=== PATIENT | male | born 1955 | race Hispanic/Latino ===

== ENCOUNTER 2017-11-13 10:51 | Day surgery (SDC) | payer MEDICAID ==
[2017-11-12 14:10] VITALS: BMI 26.2
[2017-11-13 11:32] LABS: BASO # 0.01 K/mm3 (0.0-2.0); BASO % 0.1 % (0.0-3.0); EOS # 0.1 (0.0-0.7); EOS % 1.2 % (1.5-5.0); GRAN # 5.93 (1.4-6.5); GRAN % 85.6 % (50.0-68.0); HEMOGLOBIN 9.2 g/dL (14.0-18.0); LYMPH # 0.5 (1.2-3.4); LYMPH % 7.6 % (22.0-35.0); MEAN CELL VOLUME 79.4 fl (80.0-105.0); MEAN CORPUSCULAR HEMOGLOBIN 24.3 pg (25.0-35.0); MEAN CORPUSCULAR HGB CONC 30.6 g/dl (31.0-37.0); MEAN PLATELET VOLUME 9.3 fl (7.0-11.0); MONO # 0.4 (0.1-0.6); MONO % 5.5 % (1.0-6.0); RBC 3.79 10^6/uL (3.5-6.1); RED CELL DISTRIBUTION WIDTH 15.2 % (11.5-14.5); WHITE BLOOD COUNT 6.9 10^3/ul (4.5-11.0)
[2017-11-13 11:35] VITALS: O2SAT 96
[2017-11-13 11:38] LABS: CALCIUM 10.3 mg/dL (8.4-10.5)
[2017-11-13 11:54] LABS: INR 1.15 (0.93-1.08); PARTIAL THROMBOPLASTIN TIME 61.3 Seconds (25.1-36.5); PROTHROMBIN TIME 13.3 SECONDS (9.4-12.5)
[2017-11-13] MEDS ORDERED: Lidocaine 2% Inj (20ml) ONE (13:26)
[2017-11-13] MEDS ORDERED: Midazolam 2 MG/2 ML VIAL ONE ×2 (14:12→14:25)
[2017-11-13] MEDS ORDERED: Oxycodone/Acetaminophen 5/325 mg Tab PO PRN (14:58)
[2017-11-13] MEDS ORDERED: Sodium Chloride 0.45% 1,000 ML IV SCH (15:00)
[2017-11-13 15:59] VITALS: BP 140/88; PULSE 60; RESP 16; TEMP 98
[2017-11-13] MEDS ORDERED: Oxycodone/Acetaminophen 5/325 mg Tab ONE (16:10)
--- NOTE | 2017-11-13 19:35 | VASCULAR ---
PROCEDURE: Ultrasound and fluoroscopic right subclavian venous access port CLINICAL HISTORY: Metastatic bladder carcinoma.Venous port for chemotherapy. PHYSICIAN(S): Ricky Reardon M.D. TECHNIQUE: The relative risks and indications of the procedure were explained to the patient and consent obtained. The patient was placed supine on the arteriogram table and the right neck and chest prepped and draped in the usual sterile fashion. Conscious sedation monitoring was provided throughout the procedure by a nurse. Antibiotics were given prior to the procedure. 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 Subsequently the right subclavian vein was punctured under ultrasound guidance with a micropuncture set. 0.035 angled Glidewire was advanced the IVC. A 4 cm incision was made in the right chest and a pocket developed. The catheter was tunneled to the pocket and trimmed at the appropriate length. The catheter was attached to the port and flushed. The port was placed in the pocket closed in 2 layers. The patient tolerated the procedure well. IMPRESSION: Ultrasound and fluoroscopically placed right subclavian venous access port.
== END 2017-11-13 17:10 | disposition home or self-care (01) ==
LOC: SDS 10:51
PROVIDERS: ATTEND Radiology Vascular & Interventional Radiology
DX: Z45.2 Encounter for adjustment and management of vascular access device (principal); C67.9 Malignant neoplasm of bladder, unspecified; I10 Essential (primary) hypertension; I25.10 Atherosclerotic heart disease of native coronary artery without angina pectoris; I25.2 Old myocardial infarction; E11.9 Type 2 diabetes mellitus without complications; Z95.1 Presence of aortocoronary bypass graft
CPT/HCPCS: 36415; 36561; 76937; 77001; 80048; 85025; 85610; 85730; 99152; 99153; C1769; C1788; C1894; J0690; J1644; J2250; J2405; J3010; J7030